=== PATIENT | female | born 1985 | race Asian ===

== ENCOUNTER → 2018-05-04 09:29 | Outpatient (CLI) | payer BC, SELFPAY ==
[2018-05-04 10:37] LABS: Add Manual Diff / Slide Review NO; Basophils Percent Auto 0.5 % (0-2); Eosinophils Percent Auto 1.6 % (2-4); Hematocrit 41.8 % (36-46); Hemoglobin 14.3 g/dL (12.0-16.0); Lymphocytes Percent Auto 29.5 % (25-40); Mean Corpuscular HGB Conc 34.3 % (30-36); Mean Corpuscular Hemoglobin 29.5 PG (26-34); Mean Corpuscular Volume 85.8 fL (80-100); Monocytes Percent Auto 8.2 % (3-14); Neutrophils Absolute Auto 4900 /uL (3000-5900); Neutrophils Percent Auto 60.2 % (50-75); Platelet Count 328 X10^3/uL (150-400); Red Blood Cell Count 4.87 X10^6/uL (4.0-5.2); White Blood Cell Count 8.2 X10^3/uL (4.5-11.0)
[2018-05-04 11:24] LABS: Alanine Aminotransferase 34 IU/L (9-52); Albumin 4.7 g/dL (3.5-5.0); Albumin Globulin Ratio 1.2 (1.0-2.8); Alkaline Phosphatase 58 U/L (38-126); Aspartate Aminotransferase 28 IU/L (14-36); Bilirubin Total 1.1 mg/dL (0.2-1.3); Blood Urea Nitrogen 15 mg/dL (7-17); Calcium 9.4 mg/dL (8.4-10.2); Carbon Dioxide 29 mmol/L (22-32); Chloride 101 mmol/L (98-107); Cholesterol 180 mg/dL (140-199); Estimated Glomerular Filt Rate > 60.0 mL/min (>60); Globulin 3.9 g/dL (1.7-4.1); Glucose 112 mg/dL (70-100); HDL Cholesterol 36 mg/dL (40-60); HEMOLYSIS < 15 (0-50); LDL Cholesterol Calculated 98 mg/dL (<100); Potassium 3.6 mmol/L (3.4-5.1); Sodium 140 mmol/L (137-145); Total Protein 8.6 g/dL (6.3-8.2); Triglycerides 230 mg/dL (35-150)
[2018-05-04 11:51] LABS: Thyroid Stimulating Hormone 0.83 uIU/mL (0.47-4.68)
== END ==
PROVIDERS: PCP Family Medicine; Visit Provider Family Medicine
DX: E78.5 Hyperlipidemia, unspecified (principal); I10 Essential (primary) hypertension; R73.9 Hyperglycemia, unspecified
CPT/HCPCS: 36415; 80053; 80061; 83036; 84443; 85025

== ENCOUNTER → 2021-01-27 14:15 | Outpatient (CLI) | payer OTHER, SELFPAY ==
[2021-01-27] MEDS: COVID-19 VACC, Ad26(JANSSEN)/PF 0.5 ML IM (14:22)
== END ==
PROVIDERS: Family Provider Family Medicine; PCP Family Medicine; Visit Provider Internal Medicine
DX: Z23 Encounter for immunization (principal)
CPT/HCPCS: 0031A; 91303

== ENCOUNTER → 2021-10-19 09:35 | Outpatient (CLI) | payer OTHER, SELFPAY ==
[2021-10-19 10:07] LABS: COVID19 -Nasal RAPID POSITIVE (Negative)
== END ==
PROVIDERS: Family Provider Family Medicine; PCP Family Medicine; Referring Provider Nurse Practitioner Family; Visit Provider Nurse Practitioner Family
DX: Z20.822 Contact with and (suspected) exposure to COVID-19 (principal)
CPT/HCPCS: 87635

== ENCOUNTER 2022-09-29 00:43 | Emergency (ER) | payer OTHER, SELFPAY ==
[2022-09-29 00:48] VITALS: BP 180/90; PULSE 124; RESP 22; TEMP 37.5; O2SAT 95
--- NOTE | 2022-09-29 01:05 | DI.RAD.S_ITS ---
PROCEDURE: XR CHEST 2V INDICATIONS: fever,sob,cough TECHNIQUE: 2 views of the chest were acquired. COMPARISON: None. FINDINGS: Surgical changes and devices: None. Lungs and pleura: Lungs are clear. No pleural effusions or pneumothorax. Mediastinum: Mediastinal contours are normal. Heart size is normal. Bones and chest wall: No suspicious bony abnormalities. Soft tissues appear unremarkable. IMPRESSION: 1. No acute cardiopulmonary disease. Dictated by: Scott Grant M.D. on 09/29/2022 at 2:43 Approved by: Scott Grant M.D. on 09/29/2022 at 2:43
--- NOTE | 2022-09-29 01:30 | PC.NURSE ---
Medicated at this time - increased cough - attempting to rest
[2022-09-29] MEDS: ALBUTEROL HFA PREPACK 1 BOX MISC (01:50)
[2022-09-29] MEDS: ACETAMINOPHEN/CODEINE SOLN 5 ML SOLUTION PO (02:14)
--- NOTE | 2022-09-29 02:28 | ED_ITS ---
HPI - URI/Sore Throat General Chief Complaint: Upper Respiratory Symptoms Stated Complaint: COUGH, HARD TIME BREATHING Time Seen by Provider: 09/29/22 00:44 Source: patient Mode of arrival: Ambulatory History of Present Illness HPI Narrative: 37-year-old female nonsmoker with history of hypertension presents with significant other and a chief complaint of various upper respiratory symptoms that have been going on for at least 1-2 weeks. She is had mild headache, nasal congestion, runny nose, occasional sore throat and cough. The cough has not been productive in tends to be dry and hacking. She states her symptoms seemed to get worse at night. She states that if she takes a deep breath she feels a bit wheezy and then begins to cough. She denies GI symptoms such as nausea, vomiting or diarrhea. She denies recent travel, history of blood clot, history of known cancer, hemoptysis. Related Data Home Medications Medication Instructions Recorded Confirmed Diphenhydramine Hydrochloride ##0 12/21/11 (BENADRYL) losartan 25 mg tablet 25 mg PO DAILY 10/19/21 10/19/21 Previous Rx's Medication Instructions Recorded benzonatate 200 mg capsule 200 mg PO BID PRN cough #20 caps 09/29/22 ondansetron 4 mg disintegrating 4 mg PO TID-QID PRN nausea and 09/29/22 tablet vomiting #10 tabs Allergies Allergy/AdvReac Type Severity Reaction Status Date / Time IV CONTRAST DYE Allergy Unknown HIVES AND Uncoded 10/19/21 09:39 TONGUE SWELLING Review of Systems Review of Systems Narrative: GENERAL: See HPI HEENT: See HPI RESPIRATORY: See HPI CARDIOVASCULAR: Denies chest pain, palpitations, orthopnea, edema, GASTROINTESTINAL: Denies nausea, vomiting, abdominal pain, diarrhea, cons tipation, melena. : Denies dysuria, frequency, incontinence, hematuria, urinary retention. MUSCULOSKELETAL: denies weakness, joint pain, or bony pain SKIN: Denies rash, skin lesions, or other NEUROLOGIC: Denies weakness, headache, numbness, change in speech, confusion, seizures, incoordination. PSYCHIATRIC: No concerning psychosocial issues. 12 point review of systems is negative except for those stated above Patient History Social History Smoking Status: Never smoker Smoking Status: Never smoker Substance Use Type: does not use Exam Narrative Exam Narrative: GENERAL: [37] year old patient appears stated age. Well-developed patient, in mild distress. HEAD: Atraumatic. Normocephalic. EYES: Pupils equal round and reactive. Extraocular motions intact. No scleral icterus. No injection or drainage. ENT: Nose without bleeding, purulent drainage. Throat without erythema, tonsillar hypertrophy or exudate. Clear postnasal drainage Airway patent. NECK: Trachea midline. Non tender CARDIOVASCULAR: Regular rate and rhythm without murmurs, gallops, or rubs. RESPIRATORY: Harsh sounding cough with bronchospasm, deep breath illicits cough. GASTROINTESTINAL: Abdomen soft, non-tender, nondistended. EXTREMITIES: No edema or joint tenderness. BACK: Nontender without deformity or crepitance. No flank tenderness. NEURO: AOx3. SKIN: No rash or erythema of visible areas Initial Vital Signs Initial Vital Signs: Vital Signs Temperature 99.5 F 09/29/22 00:48 Pulse Rate 124 H 09/29/22 00:48 Respiratory Rate 22 09/29/22 00:48 Blood Pressure 180/90 H 09/29/22 00:48 Pulse Oximetry 95 09/29/22 00:48 Oxygen Delivery Method 09/29/22 00:48 Course Orders Ordered: ED Orders 09/29/22 01:05 Chest [XR chest 2V] Stat 09/29/22 01:40 Covid-19 + FLU A/B + RSV - PCR Stat 09/29/22 03:10 Basic Metabolic Panel Stat Complete Blood Count AUTO DIFF Stat Sodium Chloride (Normal Saline 0.9%) 1,000 mls @ 1,000 mls/hr IV BOLUS ONE Stop: 09/29/22 03:54 Last Admin: 09/29/22 03:20 Dose: 1,000 mls/hr Documented By: CELESTINO Discontinued Medications Acetaminophen/Codeine Phosphate (Acetaminophen/Codeine Soln 5 Ml Solution) 5 ml PO NOW ONE Stop: 09/29/22 01:32 Last Admin: 09/29/22 02:14 Dose: 5 ml Documented By: CELESTINO Albuterol (Albuterol Hfa Prepack) 1 box MISC SEEINSTR ONE Stop: 09/29/22 01:32 Last Admin: 09/29/22 01:50 Dose: 1 box Documented By: JEANNE Ketorolac Tromethamine (Ketorolac 30 Mg/Ml Vial) 15 mg IV NOW ONE Stop: 09/29/22 02:56 Last Admin: 09/29/22 03:20 Dose: 15 mg Documented By: SB Reevaluation(s) Reevaluation #1: significant improvement after fluids, toradol. HR down to the upper 9os Vital Signs Vital signs: Vital Signs - 8 hr 09/29/22 00:48 09/29/22 02:50 Temperature 99.5 F 101.5 F H Pulse Rate 124 H 115 H Respiratory Rate 22 24 Blood Pressure 180/90 H 151/81 H Pulse Oximetry 95 97 Oxygen Delivery Method Room Air Room Air MDM - URI/Sore Throat Lab Data Result diagrams: 09/29/22 03:10 09/29/22 03:10 Labs: Lab Results 09/29/22 09/29/22 09/29/22 Range/Units 01:40 03:10 03:10 WBC 9.6 (4.5-11.0) X10^3/uL RBC 4.67 (4.0-5.2) X10^6/uL Hgb 13.3 (12.0-16.0) g/dL Hct 39.4 (36-46) % MCV 84.4 (80-100) fL MCH 28.4 (26-34) PG MCHC 33.6 (30-36) % RDW 13.2 (11.6-14.8) % Plt Count 245 (150-400) X10^3/uL Neut % (Auto) 75.3 H (50-75) % Lymph % (Auto) 8.9 L (25-40) % Bracken % (Auto) 13.5 (3-14) % Eos % (Auto) 1.1 L (2-4) % Baso % (Auto) 1.2 (0-2) % Neut # (Auto) 7200 H (0238-8568) /uL Lymph # (Auto) 900 L (2005-6924) /uL Bracken # (Auto) 1300 H (0-900) /uL Eos # (Auto) 100 (0-450) /uL Baso # (Auto) 100 (0-100) /uL Sodium 135 L (137-145) mmol/L Potassium 3.8 (3.4-5.1) mmol/L Chloride 101 (98-107) mmol/L Carbon Dioxide 23 (22-32) mmol/L BUN 11 (7-17) mg/dL Creatinine 0.59 (0.52-1.04) mg/dL Estimated GFR > 60 (>60) mL/min BUN/Creatinine Ratio 18.6 (6-22) Glucose 145 H (70-100) mg/dL Calcium 9.1 (8.4-10.2) mg/dL SARS-CoV-2 (PCR) Negative (Negative) Influenza A (RT-PCR) Flu a positive H (NEGATIVE) Influenza B (RT-PCR) Flu b negative (NEGATIVE) RSV (PCR) Negative (Negative) Imaging Data Chest x-ray: Radiologist's Impression: [address] [address] XRay Report Signed Patient: Pippa Aguilera MR#: [id number] : 1985 Acct:[id number] Age/Sex: 37 / F Date of Service: 09/29/22 Loc: ED Accession Number: [id number] ?? Procedure: XR chest 2V Ordering Provider: Andrea Medley D.O. PROCEDURE:? XR CHEST 2V ? INDICATIONS:? fever,sob,cough ? TECHNIQUE:? 2 views of the chest were acquired.? ? COMPARISON:? None. ? FINDINGS:? ? Surgical changes and devices:? None.? ? Lungs and pleura:? Lungs are clear.? No pleural effusions or pneumothorax.? ? Mediastinum:? Mediastinal contours are normal.? Heart size is normal.? ? Bones and chest wall:? No suspicious bony abnormalities.? Soft tissues appear unremarkable.? ? IMPRESSION:? ? 1.? No acute cardiopulmonary disease. ? ? ? Dictated by: Scott Grant M.D. on 09/29/2022 at 2:43 ? ? Approved by: Scott Grant M.D. on 09/29/2022 at 2:43 ? [facility] Narrative Medical decision making narrative: 37-year-old female nonsmoker with history of hypertension presents with significant other and a chief complaint of various upper respiratory symptoms Multiple etiologies for patient's symptoms considered including: [Influenza, COVID, bacterial pneumonia] Patient's symptoms improved over duration of stay with above-stated therapies. IV fluids and fever control have improved her temperature and heart rate down to the 90s. She shows no sign of respiratory distress and is not requiring supplemental oxygen. She is tolerating orals Labs reviewed and swab is positive for influenza A. No significant abnormalities on CBC or chemistries. Chest x-ray reviewed and no infiltrate noted Findings and discharge diagnosis discussed with patient/family followed by verbalization of understanding Return precautions discussed with patient/family whom verbalize understanding. Patient appropriate for discharge Discharge Plan Departure Patient Disposition: Home Clinical Impression: Influenza Instructions: DI for Influenza -- Adult Activity Restrictions/Additional Instructions: *You have been diagnosed with Influenza A *What to do: [ ] Prescriptions sent to [facility] Fever: *Fever is temperature over 101F, it is a common feature of most viral and bacterial infections *Fever tends to come back once the Tylenol (acetaminophen) or Motrin (ibuprofen) wears off as these medications do not treat the underlying cause, just the fever itself *Treat the patient, not the number. If your child is running around and playing you don?t have to treat the fever, however, if they seem grumpy or uncomfortable it is reasonable to treat fever *Consider alternating between Tylenol and Motrin so you will be giving medications prior to the previous dose wearing off: * your history and physical exam are very reassuring and there is no indication that the symptoms are due to a bacterial infection, therefore there is no indication for antibiotics. *Please follow up with your primary care provider in 2-3 days, call for an appointment. Let them know you were seen in the Emergency Department and that we ask that you be seen in follow up. We will electronically transmit a record of today's note if your PCP is in our system *If you do not have a primary care provider please contact the [facility] Resource line at [phone]. They will ask some questions about your medical history and help get you set up with a doctor in the community. *Return to Emergency Department if you should have any new, worsening or concerning symptoms increased work of breathing with flaring of nostrils, using belly to breathe, persistent vomiting, or other bothersome symptoms Prescriptions: New benzonatate 200 mg capsule 200 mg PO BID PRN (Reason: cough) Qty: 20 0RF ondansetron 4 mg tablet,disintegrating 4 mg PO TID-QID PRN (Reason: nausea and vomiting) Qty: 10 0RF No Action losartan 25 mg tablet 25 mg PO DAILY Diphenhydramine Hydrochloride (BENADRYL) Qty: 0 Referrals: Angela Vallecillo MD [Primary Care Provider] - Stand Alone Forms: Work Release Note
--- NOTE | 2022-09-29 02:30 | PC.NURSE ---
MD at bedside - pt's HR remains elevated and temp increasing
[2022-09-29 02:33] LABS: Influenza A - CEPHEID Flu A POSITIVE (NEGATIVE); Influenza B - CEPHEID Flu B NEGATIVE (NEGATIVE); Respiratory Syncytial Virus Negative (Negative)
[2022-09-29 02:36] LABS: COVID-19 CEPHEID 4-PLEX PCR Negative (Negative)
[2022-09-29 02:50] VITALS: BP 151/81; PULSE 115; RESP 24; TEMP 38.6; O2SAT 97
[2022-09-29] MEDS: SODIUM CHLORIDE 0.9% 1,000 ML 1000 ML IV (03:20)
[2022-09-29] MEDS: KETOROLAC 30 MG/ML VIAL 15 MG IV (03:20)
[2022-09-29 03:29] LABS: Add Manual Diff / Slide Review NO; Basophils Absolute Auto 100 /uL (0-100); Basophils Percent Auto 1.2 % (0-2); Eosinophils Absolute Auto 100 /uL (0-450); Eosinophils Percent Auto 1.1 % (2-4); Hematocrit 39.4 % (36-46); Hemoglobin 13.3 g/dL (12.0-16.0); Lymphocytes Absolute Auto 900 /uL (1100-4500); Lymphocytes Percent Auto 8.9 % (25-40); Mean Corpuscular HGB Conc 33.6 % (30-36); Mean Corpuscular Hemoglobin 28.4 PG (26-34); Mean Corpuscular Volume 84.4 fL (80-100); Monocytes Absolute Auto 1300 /uL (0-900); Monocytes Percent Auto 13.5 % (3-14); Neutrophils Absolute Auto 7200 /uL (1500-7000); Neutrophils Percent Auto 75.3 % (50-75); Platelet Count 245 X10^3/uL (150-400); Red Blood Cell Count 4.67 X10^6/uL (4.0-5.2); Red Cell Distribution Width 13.2 % (11.6-14.8); White Blood Cell Count 9.6 X10^3/uL (4.5-11.0)
--- NOTE | 2022-09-29 03:30 | PC.NURSE ---
Resting quietly in NAD - cough has improved - family at bedside - NAD - airway patent
[2022-09-29 03:38] LABS: BUN Creatinine Ratio 18.6 (6-22); Blood Urea Nitrogen 11 mg/dL (7-17); Calcium 9.1 mg/dL (8.4-10.2); Carbon Dioxide 23 mmol/L (22-32); Chloride 101 mmol/L (98-107); Estimated Glomerular Filt Rate > 60 mL/min (>60); Glucose 145 mg/dL (70-100); HEMOLYSIS < 15 (0-50); Potassium 3.8 mmol/L (3.4-5.1); Sodium 135 mmol/L (137-145)
[2022-09-29 03:39] VITALS: PULSE 103; O2SAT 96
[2022-09-29 04:00] VITALS: PULSE 105; O2SAT 94
[2022-09-29 04:30] VITALS: PULSE 96; O2SAT 94
--- NOTE | 2022-09-29 04:30 | PC.NURSE ---
VS improved - pt states that she feels like her fever is breaking at this time - no needs voiced - PWD with respirations equal and unlabored bilaterally - family at bedside
[2022-09-29 04:39] VITALS: BP 126/79; PULSE 96; RESP 16; TEMP 36.9; O2SAT 97
== END 2022-09-29 04:56 | disposition home or self-care (01) ==
PROVIDERS: Emergency Provider Emergency Medicine; Family Provider Family Medicine; PCP Family Medicine
DX: J10.1 Influenza due to other identified influenza virus with other respiratory manifestations (principal)
CPT/HCPCS: 0241U; 36415; 71046; 80048; 85025; 96374; 99284; J1885